=== PATIENT | male | born 1950 ===

== ENCOUNTER 2017-10-29 08:25 | Day surgery (SDC) | payer MEDICARE, OTHER ==
[~2017-10-29] VITALS: Ht 172.7 cm; Wt 91.4 kg
[~2017-10-29 08:25] MED LIST: DEXAMETHASONE 4 MG/ML, 1ML ONE; FENTANYL PF 100 MCG/2ML ONE; HEPARIN 1,000 UNITS/ML, 10ML ONE; LIDOCAINE 2%, 10ML ONE; MIDAZOLAM 1 MG/ML, 2ML ONE; ONDANSETRON 2MG/ML, 2ML ONE; PROTAMINE SULFATE 10 MG/ML, 5ML ONE
[2017-10-29] MEDS ORDERED: SODIUM CHLORIDE 0.9% 1,000 ML IV SCH (09:13)
[2017-10-29] MEDS ORDERED: CLOP75TA PO (09:19)
[2017-10-29] MEDS ORDERED: FERR324T8 PO (09:19)
[2017-10-29] MEDS ORDERED: SODI650T PO (09:19)
[2017-10-29] MEDS ORDERED: CHOL500045 PO (09:19)
[2017-10-29] MEDS ORDERED: LEVO200T5 PO (09:19)
[2017-10-29] MEDS ORDERED: CARV6.252 PO (09:19)
[2017-10-29] MEDS ORDERED: FELO10TA PO (09:19)
[2017-10-29] MEDS ORDERED: ATOR40TA78 PO (09:19)
[2017-10-29] MEDS ORDERED: LOSA50TA6 PO (09:19)
[2017-10-29 09:20] VITALS: BP 127/73
[2017-10-29] MEDS ORDERED: LIDOCAINE-MPF 1%, 2ML ONE (09:27)
[2017-10-29] MEDS ORDERED: LIDOCAINE-MPF 1%, 2ML INFIL ONE (09:30)
[2017-10-29] MEDS ORDERED: FENTANYL PF 100 MCG/2ML IV PRN (10:00)
[2017-10-29] MEDS ORDERED: ONDANSETRON 2MG/ML, 2ML IVPush PRN (10:00)
[2017-10-29] MEDS ORDERED: LABETALOL 5MG/ML, 20ML IV PRN (10:00)
[2017-10-29] MEDS ORDERED: MEPERIDINE/PF 25MG/0.5ML IVPush PRN (10:00)
[2017-10-29] MEDS ORDERED: MIDAZOLAM 1 MG/ML, 2ML IV PRN (10:00)
[2017-10-29] MEDS ORDERED: HYDROmorphone 1 MG/ML, 1ML IV PRN (10:00)
[2017-10-29] MEDS ORDERED: OXYcodone 5 MG/5 ML ORAL.SOL UDC PO PRN (10:00)
[2017-10-29] MEDS ORDERED: PROPOFOL 10 MG/ML, 20ML ONE (10:09)
[2017-10-29] MEDS ORDERED: CEFAZOLIN 1,000 MG ONE ×2 (10:33)
[2017-10-29] MEDS ORDERED: OXYcodone 5 MG/5 ML ORAL.SOL UDC ONE (11:16)
== END 2017-10-29 13:40 | disposition home or self-care (01) ==
LOC: OUT 08:25
PROVIDERS: ATTEND Surgery Vascular Surgery
DX: I12.0 Hypertensive chronic kidney disease with stage 5 chronic kidney disease or end stage renal disease (principal); E11.22 Type 2 diabetes mellitus with diabetic chronic kidney disease; N18.6 End stage renal disease
CPT/HCPCS: 36415; 36821; 80047; 82962; 93005; J0690; J1100; J1644; J2250; J2405; J2704; J3010; J3490; J7030; J2720